=== PATIENT | male | born 1955 ===

== ENCOUNTER → 2022-03-28 06:44 | Outpatient (CLI) | payer MEDICARE, SELFPAY ==
--- NOTE | ~2022-03-28 | MR_ITS ---
MRI of the right knee Clinical history: Pain Technique: Coronal proton density and proton density-weighted images, sagittal proton-density and T2 fat-sat images, and axial proton-density fat-saturated images were acquired. Findings: Anterior and posterior cruciate ligaments are intact. Medial collateral ligament and the la teral collateral ligament complex are intact. Popliteus tendon is intact. There is complex tearing of the posterior horn and body of the medial meniscus, with both horizontal and vertical/radial tear components. There is partial extrusion of the body of the medial meniscus in to the medial gutter. No lateral meniscal tear identified. There is extensive high-grade chondromalacia the medial compartment, especially towards the medial radha int line, with mild subchondral reactive marrow edema. Articular cartilage in the lateral compartment and along the femoral trochlea is intact. There is mild to moderate chondromalacia along the medial patellar facet. Small tricompartmental osteophytes are present. Extensor mechanism is intact. Minimal joint effusion present, with minimal Shi's cyst. Impression: Complex tearing of the posterior horn and body of medial meniscus, as detailed above. Moderate degenerative change of the medial compartment, as detailed above. Mild degenerative change o f the lateral and patellofemoral compartments, as detailed above. Minimal joint effusion with minimal Shi's cyst. Reviewed, dictated and finalized at location [facility] [employer] Impression: Complex tearing of the posterior horn and body of medial meniscus, as detailed above. Moderate degenerative change of the medial compartment, as detailed above. Mild degenerative change of the lateral and patellofemoral compartments, as detaile d above. Minimal joint effusion with minimal Shi's cyst.
== END ==
PROVIDERS: PCP Orthopaedic Surgery; Visit Provider Orthopaedic Surgery
DX: G89.29 Other chronic pain (principal); M25.561 Pain in right knee; S83.231A Complex tear of medial meniscus, current injury, right knee, initial encounter; M25.461 Effusion, right knee; M71.21 Synovial cyst of popliteal space [Baker], right knee
CPT/HCPCS: 73721